=== PATIENT | female | born 1965 | race Two or more races ===

== ENCOUNTER 2023-02-11 06:20 | Outpatient (CLI) | payer OTHER | END 2023-02-11 06:24 | disposition home or self-care (01) | LOC: LAB 06:20 | PROVIDERS: ATTEND Specialist | DX: Z20.822 Contact with and (suspected) exposure to COVID-19 (principal); J12.82 Pneumonia due to coronavirus disease 2019; M35.81 Multisystem inflammatory syndrome ==